=== PATIENT | male | born 1975 | race Caucasian/White ===

== ENCOUNTER 2021-05-13 18:02 | Emergency (ER) | payer SELFPAY ==
[~2021-05-13] VITALS: Ht 167.6 cm; Wt 108.0 kg
[2021-05-13 18:31] VITALS: BP 172/112
--- NOTE | 2021-05-13 19:48 | NUR ---
Dr. Brown examining patient.
--- NOTE | 2021-05-13 20:06 | NUR ---
NOVEL SWAB COLLECTED AND TAKEN TO LAB.
[2021-05-13 20:45] VITALS: BP 133/99
--- NOTE | 2021-05-13 20:45 | NUR ---
Patient discharged with v/s stable. Written and verbal after care instructions given and explained. Patient verbalized understanding. Ambulatory with steady gait. All questions addressed prior to discharge. Advised to follow up with PMD.
== END 2021-05-13 20:45 | disposition home or self-care (01) ==
LOC: MED 18:02
DX: B34.9 Viral infection, unspecified (principal); Z20.822 Contact with and (suspected) exposure to COVID-19; I10 Essential (primary) hypertension; Z98.890 Other specified postprocedural states
CPT/HCPCS: 71045; 87426; 99284; U0003

== ENCOUNTER 2021-09-23 23:34 | Emergency (ER) | payer SELFPAY ==
[~2021-09-23] VITALS: Ht 167.6 cm; Wt 110.2 kg
[2021-09-23 23:41] VITALS: BP 130/102
--- NOTE | 2021-09-23 23:55 | NUR ---
Pt ambulated to bed 11.
[2021-09-24] MEDS ORDERED: ASPIRIN 325 MG TAB PO ONE
[2021-09-24] MEDS ORDERED: NITROGLYCERIN 0.4 MG TAB SL ONE
--- NOTE | 2021-09-24 00:07 | NUR ---
REPORTS SOME CHEST PAIN SINCE TUESDAY WITH NEW ONSET LEFT ARM SENSATION ABNORMALITIES AND NUMBNESS. COAX4 WITH NOOTHER COMPLAINTS. PMHX HTN NKA
[2021-09-24 00:09] LABS: BASOPHILS # (AUTO) 0.1 K/uL (0.00-0.22); BASOPHILS % (AUTO) 0.6 % (0.0-2.0); EOSINOPHILS # (AUTO) 0.3 K/uL (0-0.4); EOSINOPHILS % (AUTO) 3.9 % (0.0-4.0); HEMATOCRIT 47.1 % (36-52); HEMOGLOBIN 16.5 g/dL (12.0-18.0); LYMPHOCYTES # (AUTO) 2.3 K/uL (2.0-11.5); LYMPHOCYTES % (AUTO) 28.4 % (20.5-51.1); MEAN CORPUSCULAR HEMOGLOBIN 31 pg (27-31); MEAN CORPUSCULAR HGB CONC 35 g/dL (33-37); MEAN CORPUSCULAR VOLUME 87.7 fL (80-94); MONOCYTES # (AUTO) 0.7 K/uL (0.8-1.0); NEUTROPHILS # (AUTO) 4.8 K/uL (1.8-7.7); NEUTROPHILS % (AUTO) 58.1 % (42.2-75.2); PLATELET COUNT (AUTO) 349 K/uL (140-450); RED BLOOD CELL COUNT(AUTO) 5.37 MIL/uL (4.20-6.10); RED CELL DISTRIBUTION WIDTH 13.3 % (11.6-13.7); WHITE BLOOD COUNT (AUTO) 8.2 K/uL (4.8-10.8)
[2021-09-24 00:26] LABS: ALBUMIN 3.5 g/dL (3.4-5.0); ANION GAP 15.3 (8-16); CARBON DIOXIDE 20.7 mmol/L (21-32); CREATININE 0.9 mg/dL (0.6-1.3); TOTAL BILIRUBIN 0.7 mg/dL (0.0-1.0)
[2021-09-24] MEDS ORDERED: KETOROLAC 30 MG/ML VIAL IM ONE (01:30)
[2021-09-24] MEDS ORDERED: NAPR-54 PO (03:09)
--- NOTE | 2021-09-24 03:25 | NUR ---
CLEARED FOR DISCHARGE AT THIS TIME. NO OTHER COMPLAINTS OR CONCERNS AT THIS TIME FOLLOWING DISHCARGE TEACHING. ADVISED TO FOLLOW UP WITH PCP AND RETURN IF CONDITON WORSENS.
[2021-09-24 03:26] VITALS: BP 130/102
== END 2021-09-24 03:32 | disposition home or self-care (01) ==
LOC: MED 23:34
DX: R07.89 Other chest pain (principal); I10 Essential (primary) hypertension; F17.210 Nicotine dependence, cigarettes, uncomplicated; F15.90 Other stimulant use, unspecified, uncomplicated; Z71.6 Tobacco abuse counseling; Z90.49 Acquired absence of other specified parts of digestive tract; Z79.899 Other long term (current) drug therapy
CPT/HCPCS: 36415; 71045; 80053; 83690; 84484; 85025; 93005; 96372; 99285; J1885; Q0092

== ENCOUNTER 2022-04-18 07:36 | Inpatient (IN) | payer OTHER ==
[~2022-04-18] VITALS: Ht 167.6 cm; Wt 104.3 kg
[~2022-04-18 07:36] MED LIST: NAPR-54 PO
[2022-04-18 07:40] VITALS: BP 131/67
--- NOTE | 2022-04-18 07:40 | NUR ---
TO BED AMBULATORY
--- NOTE | 2022-04-18 07:42 | NUR ---
SEEN AND EXAMINED BY DR. RYAN
[2022-04-18] MEDS ORDERED: FUROSEMIDE 40 MG/4 ML VIAL IVP ONE (07:45)
[2022-04-18] MEDS ORDERED: NITROGLYCERIN 2% 1 GM PKT TP ONE (07:45)
[2022-04-18] MEDS ORDERED: ASPIRIN 325 MG TAB PO ONE (07:45)
--- NOTE | 2022-04-18 07:57 | NUR ---
LAB AT BEDSIDE
[2022-04-18 08:12] LABS: BASOPHILS # (AUTO) 0.1 K/uL (0.00-0.22); BASOPHILS % (AUTO) 1.5 % (0.0-2.0); EOSINOPHILS # (AUTO) 0.2 K/uL (0-0.4); EOSINOPHILS % (AUTO) 2.1 % (0.0-4.0); HEMATOCRIT 47.2 % (36-52); HEMOGLOBIN 15.6 g/dL (12.0-18.0); LYMPHOCYTES # (AUTO) 2.7 K/uL (2.0-11.5); LYMPHOCYTES % (AUTO) 27.2 % (20.5-51.1); MEAN CORPUSCULAR HEMOGLOBIN 29 pg (27-31); MEAN CORPUSCULAR HGB CONC 33 g/dL (33-37); MEAN CORPUSCULAR VOLUME 88.8 fL (80-94); MONOCYTES # (AUTO) 0.8 K/uL (0.8-1.0); MONOCYTES % (AUTO) 7.9 % (1.7-9.3); NEUTROPHILS # (AUTO) 6.2 K/uL (1.8-7.7); NEUTROPHILS % (AUTO) 61.3 % (42.2-75.2); PLATELET COUNT (AUTO) 383 K/uL (140-450); RED BLOOD CELL COUNT(AUTO) 5.32 MIL/uL (4.20-6.10); RED CELL DISTRIBUTION WIDTH 17.3 % (11.6-13.7)
--- NOTE | 2022-04-18 08:18 | NUR ---
46YR OLD MALE BIB SELF C/O CP AND SOB SINCE TUESDAY. PAIN LEVEL 05/26 . MIDSTERNAL PRESSURE TO LEFT ARM /SHOULDER. DENIES N/V. IS SOB. NO DISTRESS NOTED. RESP EVEN AND UNLABORED. 02SAT 99% RA. PT IS A&OX4. STATES LOWER EXTREMITIES WERE SWOLLEN. HASNT TAKEN HIS RX MEDS FOR A WEEK. HX OF HTN AND CHF. PT ON BEDSIDE MONITOR . SIDE RAILS UP X2 HOB ELEVATED. 20G IV CATH PLACED IN L AC NKDA CHF HTN
--- NOTE | 2022-04-18 08:18 | NUR ---
20G IV CATH PLACED L AC . LABS OBTAINED AND SENT WITH HOSPICE PLAN ADMINISTRATOR. CXR DONE AT BEDSIDE
[2022-04-18 08:47] LABS: ALBUMIN 3.3 g/dL (3.4-5.0); ASPARTATE AMINOTRANSFERASE 16 U/L (15-37); CARBON DIOXIDE 22.2 mmol/L (21-32); CHLORIDE 106 mmol/L (98-107); CREATININE 1.2 mg/dL (0.6-1.3); GFR ARICAN-AMERICAN 84 mL/min (>90); GLUCOSE 148 mg/dL (74-106); POTASSIUM 4.2 mmol/L (3.5-5.1); SODIUM SERUM 137 mmol/L (136-145); TOTAL BILIRUBIN 0.6 mg/dL (0.0-1.0); UREA NITROGEN, BLOOD 21 mg/dL (7-18)
[2022-04-18] MEDS ORDERED: MORPHINE SULFATE 4 MG/ML SYR IVP ONE (10:30)
[2022-04-18] MEDS ORDERED: ENOXAPARIN 100 MG/ML SYR SUBQ ONE (10:30)
--- NOTE | 2022-04-18 10:39 | NUR ---
CLARIFY WITH DR RYAN COAG LABS TO BE DONE BEFORE LEONOX INJECTED, PER DR RYAN NONE ARE NEEDED
--- NOTE | 2022-04-18 10:47 | NUR ---
PATIENT TOLERATED MEDS . PENDING ADMISSION ORDERS.
[2022-04-18] MEDS ORDERED: LISI5TAB18 PO (12:19)
[2022-04-18] MEDS ORDERED: FURO-570 PO (12:20)
[2022-04-18] MEDS ORDERED: ATOR10TA51 PO (12:20)
[2022-04-18] MEDS ORDERED: CARV3.12 PO (12:21)
[2022-04-18] MEDS ORDERED: SPIR50TA PO (12:22)
--- NOTE | 2022-04-18 12:43 | NUR ---
PENDING ADMISSION [facility] . [facility] REC AND BELONGINGS COMPLETE
[2022-04-18] MEDS ORDERED: ACETAMINOPHEN 325 MG TAB PO PRN (13:15)
[2022-04-18] MEDS ORDERED: guaiFENesin DM 200/20 MG-10 ML 10 ML UDC PO PRN (13:15)
[2022-04-18] MEDS ORDERED: ZOLPIDEM 5 MG TAB PO PRN (13:15)
[2022-04-18] MEDS ORDERED: ONDANSETRON 4 MG/2 ML VIAL IM/IVP PRN (13:15)
[2022-04-18] MEDS ORDERED: DOCUSATE SODIUM 100 MG GELCAP PO PRN (13:15)
[2022-04-18] MEDS ORDERED: POTASSIUM CHLORIDE 10 MEQ TABER PO PRN (13:15)
[2022-04-18] MEDS ORDERED: HYDROcodone/APAP 7.5/325 MG 1 TAB PO PRN (13:15)
[2022-04-18] MEDS ORDERED: FUROSEMIDE 100 MG/10 ML VIAL IV SCH (14:00)
--- NOTE | 2022-04-18 14:40 | NUR ---
TELE HOLD. FOOD PROVIDED TO PATIENT. RESP EVEN AND UNLABORED. BEDSIDE MONITOR ON PT
[2022-04-18 15:04] LABS: CHOL/HDL RATIO 3.8 (1-4.5); FREE T4 (FREE THYROXINE) 0.95 ng/dL (0.76-1.46); MAGNESIUM 1.9 mg/dL (1.8-2.4); PHOSPHORUS 4.5 mg/dL (2.5-4.9); PROTHROMBIN TIME 12.2 secs (10.8-13.4); THYROID STIMULATING HORMONE 3.44 uIU/mL (0.34-3.74)
--- NOTE | 2022-04-18 15:51 | NUR ---
ULTRASOUND AT BEDSIDE
[2022-04-18] MEDS ORDERED: ATORVASTATIN 20 MG TAB PO SCH (17:00)
--- NOTE | 2022-04-18 19:28 | NUR ---
PT SLEEPING. X2 BED RAILS UP.
--- NOTE | 2022-04-18 20:32 | NUR ---
Patient will be admitted to care of [facility]. Admited to TELE. Will go to room 120 B. Belongings list completed. Report to NICK.
--- NOTE | 2022-04-18 20:38 | NUR ---
RECEIVED PT TO THE UNIT FROM ER ESCORTED BY 2 ER [facility]UR[facility]. AWAKE, ALERT AND VERBALLY RESPONSIVE. PT TRANSFERRED INDEPENDENTLY FROM RBIXBY TO BED. SKIN INTACT, DRY AND WARM. ON ASSESSMENT, RESPIRATION EVEN AND BILATERAL LUNGS SOUNDS CLEAR. PT WITH MILD SOB WHEN SPEAK OF A LONG SENTENCE. PT VERBALIZED OF FEELING SLIGHTLY BLOATED, FEELS BETTER AFTER LASIX. IV SALINE LOCK PRESENT ON LEFT AC OF 20G, INTACT AND PATENT, NO REDNESS OR SIGN/SYMPTOM OF INFECTION. ABDOMEN WITH MINIMAL DISTENTION. PT STATED WITH MINIMAL DISCOMFORT ON MIDDLE CHEST WHICH TOLERABLE. WILL CONTINUE TO MONITOR.
[2022-04-18] MEDS: FUROSEMIDE 40 MG/4 ML VIAL IVP SCH (21:45)
[2022-04-18] MEDS: METOPROLOL 25 MG TAB PO SCH (21:45)
--- NOTE | 2022-04-18 21:45 | NUR ---
LASIX ADMINISTERED ORDERED.
--- NOTE | 2022-04-18 22:15 | NUR ---
PT AMBULATES TO RESTROOM INDEPENDENTLY. PT VERBALIZED OF FEELING RELIEVE FROM DISCOMFORT/CHEST PAIN ON MID CHEST.
--- NOTE | 2022-04-19 00:15 | NUR ---
PT ASLEEP. NO FACIAL GRIMACING.
[2022-04-19 04:00] VITALS: BP 112/85
[2022-04-19 05:46] LABS: BASOPHILS # (AUTO) 0.1 K/uL (0.00-0.22); BASOPHILS % (AUTO) 1.3 % (0.0-2.0); EOSINOPHILS # (AUTO) 0.3 K/uL (0-0.4); EOSINOPHILS % (AUTO) 2.9 % (0.0-4.0); HEMATOCRIT 45.1 % (36-52); HEMOGLOBIN 15.1 g/dL (12.0-18.0); LYMPHOCYTES # (AUTO) 2.5 K/uL (2.0-11.5); LYMPHOCYTES % (AUTO) 26.4 % (20.5-51.1); MEAN CORPUSCULAR HEMOGLOBIN 30 pg (27-31); MEAN CORPUSCULAR HGB CONC 33 g/dL (33-37); MEAN CORPUSCULAR VOLUME 88.5 fL (80-94); MONOCYTES # (AUTO) 0.8 K/uL (0.8-1.0); MONOCYTES % (AUTO) 8.1 % (1.7-9.3); NEUTROPHILS # (AUTO) 5.8 K/uL (1.8-7.7); NEUTROPHILS % (AUTO) 61.3 % (42.2-75.2); PLATELET COUNT (AUTO) 401 K/uL (140-450); RED CELL DISTRIBUTION WIDTH 17.1 % (11.6-13.7); WHITE BLOOD COUNT (AUTO) 9.5 K/uL (4.8-10.8)
[2022-04-19 06:47] LABS: ANION GAP 13.8 (8-16); CARBON DIOXIDE 23.7 mmol/L (21-32); CREATININE 1.3 mg/dL (0.6-1.3); POTASSIUM 3.5 mmol/L (3.5-5.1)
[2022-04-19 08:00] VITALS: BP 108/79
[2022-04-19 08:07] LABS: T4 (THYROXINE) 6.5 ug/dL (4.5-12.0)
--- NOTE | 2022-04-19 08:25 | NUR ---
RECEIVE ENDORSEMENT FROM PM SHIFT NURSE THAT PATIENT IS REST IN BED, PIV LAC 20G SALINE LOCK. WILL CONTINUE TO MONITOR
[2022-04-19] MEDS: FUROSEMIDE 40 MG/4 ML VIAL IVP SCH ×2 (08:57→20:59)
[2022-04-19] MEDS: PANTOPRAZOLE 40 MG TABEC PO SCH (08:58)
[2022-04-19] MEDS: METOPROLOL 25 MG TAB PO SCH (08:58)
[2022-04-19] MEDS: lisinopriL 20 MG TAB PO SCH (08:59)
[2022-04-19 10:11] LABS: APPEARANCE,URINE CLEAR (CLEAR); BILIRUBIN,URINE NEGATIVE (NEGATIVE); BLOOD, URINE NEGATIVE (NEGATIVE); COLOR,URINE YELLOW (YELLOW); LEUKOCYTE ESTERASE ,URINE NEGATIVE (NEGATIVE); NITRITE, URINE NEGATIVE (NEGATIVE); UGLUCOSE NEGATIVE (NEGATIVE)
[2022-04-19 10:23] LABS: BARBITURATE, URINE NEGATIVE ng/ml (NEG <=200); BENZODIAZEPINE, URINE NEGATIVE ng/mL (NEG <=200); CANNABINOID, URINE NEGATIVE ng/mL (NEG <=50); COCAINE, URINE NEGATIVE ng/mL (NEG <=300); OPIATE, URINE POSITIVE ng/mL (NEG <=2000); PHENCYCLIDINE SCREEN,URINE NEGATIVE ng/mL (NEG <=25)
[2022-04-19 12:00] VITALS: BP 100/73
[2022-04-19] MEDS ORDERED: NAPROXEN 500 MG TAB PO PRN (12:10)
[2022-04-19 16:00] VITALS: BP 99/65
--- NOTE | 2022-04-19 16:48 | NUR ---
SENDING REQUEST FOR MEDICAL RECORD FOR PATIENT WHO HAS SPENT ABOUT 3 DAYS STAY IN [facility] ([phone], PATIENT THOUGH WAS [facility]) AT DECEMBER. PLEASE F/U
--- NOTE | 2022-04-19 17:02 | NUR ---
04/19/2022 RD INITIAL ASSESSMENT COMPLETED. PLEASE REFER TO NUTRITION ASSESSMENT UNDER CARE ACTIVITY FOR ESTIMATED NUTRITIONAL NEEDS. 1.CONTINUE WITH CARDIAC DIET. 2.MONITOR NUTRITION-RELATED LABS 3.RD TO FOLLOW-UP IN 3-5 DAYS PATIENT IS MODERATE RISK. KENDRA HARRIS, RD
--- NOTE | 2022-04-19 19:41 | NUR ---
ENDORSE PT TO PM SHIFT NURSE THAT PATIENT IS REST IN BED, PIV LAC 20G SALINE LOCK. FAX REQUEST FOR MEDICAL RECORD TO [facility]
--- NOTE | 2022-04-19 19:45 | NUR ---
GET THE REPORT FROM MORNING NURSE MADI, PATIENT IS LYING ON BED, PATIENT IS ALERT ORIENTED X4, CALL LIGHT IS WITHIN THE REACH, WILL CONTINUE TO MONITOR PATIENT.
[2022-04-19 20:00] VITALS: BP 100/71
--- NOTE | 2022-04-19 20:33 | NUR ---
PATIENT IS LYING ON BED, NO ANY COMPLAIN OF PAIN OR SHORTNESS OF BREATH AT THIS TIME, VITAL SIGN IS WITHIN THE NORMAL RANGE, CALL LIGHT IS WITHIN THE REACH, WILL CONTINUE TO MONITOR PATIENT.
[2022-04-19] MEDS: carvediloL 3.125 MG TAB PO SCH (20:59)
--- NOTE | 2022-04-19 21:01 | NUR ---
PATIENT BLOOD PRESSURE IS 100/71, MASSAGE DOCTOR SUYAPA ABOUT FOR TO HOLD LASIX 40 MG AND COREG3.375MG, DOCTOR REPLY WITH HOLD MEDICATION FOR NOW , MEDICATION HELD PER DOCTOR ORDER, CALL LIGHT IS WITHIN THE REACH,WILL CONTINUE TO MONITOR PATIENT.
--- NOTE | 2022-04-19 21:05 | NUR ---
AT 2100 SCHEDULE MEDICATION HOLD LASIX 40 MG AND COREG 3.125MG PER DOCTOR ORDER, CALL LIGHT IS WITHIN THE REACH, WILL CONTINUE TO MONITOR PATIENT.
[2022-04-20] VITALS: BP 97/65
--- NOTE | 2022-04-20 01:07 | NUR ---
PATIENT IS LYING ON BED, NO ANY COMPLAIN OF PAIN OR SHORTNESS OF BREATH AT THIS TIME, VITAL SIGN IS WITHIN THE NORMAL RANGE, CALL LIGHT IS WITHIN THE REACH,WILL CONTINUE TO MONITOR PATIENT.
[2022-04-20 04:00] VITALS: BP 98/71
--- NOTE | 2022-04-20 04:06 | NUR ---
PATIENT IS LYING ON BED, NO ANY COMPLAIN OF PAIN OR SHORTNESS OF BREATH AT THIS TIME, REMOVE THE INFILTRATED IV AND REINSERT NEW IV AT LEFT WRIST 20 GAUGE, VITAL SIGN IS WITHIN THE NORMAL RANGE, CALL LIGHT IS WITHIN THE REACH,WILL CONTINUE TO MONITOR PATIENT.
[2022-04-20 05:54] LABS: BASOPHILS # (AUTO) 0.1 K/uL (0.00-0.22); BASOPHILS % (AUTO) 0.8 % (0.0-2.0); EOSINOPHILS # (AUTO) 0.1 K/uL (0-0.4); EOSINOPHILS % (AUTO) 1.3 % (0.0-4.0); HEMATOCRIT 45.3 % (36-52); HEMOGLOBIN 14.9 g/dL (12.0-18.0); LYMPHOCYTES # (AUTO) 2.5 K/uL (2.0-11.5); LYMPHOCYTES % (AUTO) 27.9 % (20.5-51.1); MEAN CORPUSCULAR HEMOGLOBIN 29 pg (27-31); MEAN CORPUSCULAR HGB CONC 33 g/dL (33-37); MEAN CORPUSCULAR VOLUME 88.5 fL (80-94); MONOCYTES # (AUTO) 0.8 K/uL (0.8-1.0); MONOCYTES % (AUTO) 8.5 % (1.7-9.3); NEUTROPHILS # (AUTO) 5.6 K/uL (1.8-7.7); NEUTROPHILS % (AUTO) 61.5 % (42.2-75.2); PLATELET COUNT (AUTO) 399 K/uL (140-450); RED BLOOD CELL COUNT(AUTO) 5.12 MIL/uL (4.20-6.10); RED CELL DISTRIBUTION WIDTH 17.1 % (11.6-13.7); WHITE BLOOD COUNT (AUTO) 9.1 K/uL (4.8-10.8)
[2022-04-20 06:01] LABS: ANION GAP 14.4 (8-16); CARBON DIOXIDE 23.2 mmol/L (21-32); CREATININE 1.4 mg/dL (0.6-1.3); POTASSIUM 3.6 mmol/L (3.5-5.1)
--- NOTE | 2022-04-20 06:24 | NUR ---
PATIENT IS LYING ON BED, WILL CONTINUE TO MONITOR PATIENT
--- NOTE | 2022-04-20 07:34 | NUR ---
GIVE REPORT TO MORNING NURSE MORE FOR CONTINUOUS OF CARE, PATIENT IS STABLE.
[2022-04-20 08:00] VITALS: BP 101/74
--- NOTE | 2022-04-20 08:00 | NUR ---
RECEIVED REPORT FROM INFORMATION ENGINEER FOR CONTINUITY OF CARE. PATIENT ALERT AWAKE ORIENTED X4, NOT IN ANY DISTRESS NOTED. DENIES PAIN AT THIS TIME. ON SCHEDULER CONVEYOR SHOWS SR. WITH HEPLOCK LEFT WRIST G 20DRY INTACT. BED IN LOW POSITION. CALL LIGHT WITHIN REACH. PATIENT WANTS TO GO HOME. WILL CONTINUE TO MONITOR.
[2022-04-20] MEDS ORDERED: lisinopriL 5 MG TAB PO SCH ×2 (09:00→21:00)
[2022-04-20] MEDS ORDERED: SPIRONOLACTONE 50 MG TAB PO SCH (09:00)
[2022-04-20] MEDS ORDERED: ATORVASTATIN 20 MG TAB PO SCH (09:00)
[2022-04-20] MEDS: PANTOPRAZOLE 40 MG TABEC PO SCH (09:40)
[2022-04-20] MEDS: carvediloL 3.125 MG TAB PO SCH (09:41)
[2022-04-20] MEDS: lisinopriL 20 MG TAB PO SCH (09:41)
[2022-04-20] MEDS: FUROSEMIDE 40 MG/4 ML VIAL IVP SCH (09:41)
--- NOTE | 2022-04-20 11:19 | NUR ---
PATIENT ASLEEP SNORING, DENIES PAIN .WILL CONTINUE TO MONITOR.
[2022-04-20 12:00] VITALS: BP 103/75
[2022-04-20 16:00] VITALS: BP 102/67
[2022-04-20] MEDS ORDERED: ATOR20TA40 PO (17:39)
[2022-04-20] MEDS ORDERED: LISI5TAB24 PO (17:39)
[2022-04-20] MEDS ORDERED: FURO-570 PO (17:39)
[2022-04-20] MEDS ORDERED: SPIR50TA PO (17:39)
[2022-04-20] MEDS ORDERED: CARV3.12 PO (17:39)
--- NOTE | 2022-04-20 18:27 | NUR ---
PATIENT DC HOME AMBULATORY WITH DC INSTRUCTION GIVEN AND VERBALIZED UNDERSTANDING, IN STABLE CONDITION.
[2022-04-21] MEDS ORDERED: FUROSEMIDE 40 MG/4 ML VIAL IVP SCH (09:00)
[2022-04-21] MEDS ORDERED: FUROSEMIDE 40 MG TAB PO SCH (09:00)
== END 2022-04-20 18:25 | disposition home or self-care (01) | DRG 291 ==
LOC: MED 07:36 → MTU 11:32 → MED 18:17
PROVIDERS: ADMIT Family Medicine; ATTEND Family Medicine
DX: I11.0 Hypertensive heart disease with heart failure (principal); I50.23 Acute on chronic systolic (congestive) heart failure; E44.1 Mild protein-calorie malnutrition; I42.0 Dilated cardiomyopathy; E78.5 Hyperlipidemia, unspecified; E78.1 Pure hyperglyceridemia; Z20.822 Contact with and (suspected) exposure to COVID-19; Z79.899 Other long term (current) drug therapy; Z90.49 Acquired absence of other specified parts of digestive tract; Z79.84 Long term (current) use of oral hypoglycemic drugs; Z68.37 Body mass index [BMI] 37.0-37.9, adult; Z91.14 Patient's other noncompliance with medication regimen
CPT/HCPCS: 36415; 71045; 80048; 80053; 80305; 81003; 82150; 83036; 83690; 83735; 83880; 84100; 84436; 84439; 84443; 84479; 84484; 85025; 85610; 85730; 87081; 93005; 96372; 96374; 96375; 99291; J1650; J1940; J2270

== ENCOUNTER 2022-05-27 08:24 | Emergency (ER) | payer OTHER ==
[~2022-05-27] VITALS: Ht 167.6 cm; Wt 104.3 kg
[~2022-05-27 08:24] MED LIST changes: +ATOR20TA40 PO; +CARV3.12 PO; +FURO-570 PO; +LISI5TAB24 PO; -NAPR-54 PO; +SPIR50TA PO
[2022-05-27 08:30] VITALS: BP 144/97
--- NOTE | 2022-05-27 08:36 | NUR ---
PT W/C ASSISTED TO BED 11.
--- NOTE | 2022-05-27 09:18 | NUR ---
TAILING MACHINE OPERATOR BEDSIDE
--- NOTE | 2022-05-27 09:22 | NUR ---
46/M PRESENTS TO ED WITH C/O BILATERAL FOOT PAIN X3 WEEKS, PATIENT DENIES RECENT INJURY OR TRAUMA. STATES HE HAS BEEN MOVING HEAVY EQUIPMENT IN THE LAST FEW WEEKS D/T A NEW JOB, PATIENT REPORTS EPISODES OF SWELLING TO BOTH FEET. PATIENT W/C ASSISTED UPON ARRIVAL TO ED.
[2022-05-27] MEDS ORDERED: KETOROLAC 30 MG/ML VIAL IM ONE (09:55)
[2022-05-27] MEDS ORDERED: KETOROLAC 30 MG/ML VIAL ONE (10:01)
[2022-05-27 11:03] VITALS: BP 125/77
--- NOTE | 2022-05-27 11:04 | NUR ---
Patient discharged with v/s stable. Written and verbal after care instructions ABOUT FOOT PAIN given and explained. Patient verbalized understanding. Wheel Chair Assisted with to LOBBY TO A/W RIDE. All questions addressed prior to discharge. Advised to follow up with PMD.
== END 2022-05-27 11:04 | disposition home or self-care (01) ==
LOC: MED 08:24
DX: M79.672 Pain in left foot (principal); M79.671 Pain in right foot; E78.5 Hyperlipidemia, unspecified
CPT/HCPCS: 73610; 73630; 96372; 99284; J1885

== ENCOUNTER 2022-07-06 06:20 | Emergency (ER) | payer OTHER ==
[~2022-07-06] VITALS: Ht 177.8 cm; Wt 108.4 kg
[2022-07-06] MEDS ORDERED: ASPIRIN 81 MG TAB.CHEW ONE (08:52)
[2022-07-06] MEDS ORDERED: FUROSEMIDE 20 MG/2 ML VIAL IVP ONE (08:52)
[2022-07-06 10:16] LABS: BASOPHILS # (AUTO) 0.1 K/uL (0.00-0.22); EOSINOPHILS # (AUTO) 0.2 K/uL (0-0.4); EOSINOPHILS % (AUTO) 2.3 % (0.0-4.0); HEMATOCRIT 48.2 % (36-52); HEMOGLOBIN 15.8 g/dL (12.0-18.0); LYMPHOCYTES # (AUTO) 1.6 K/uL (2.0-11.5); LYMPHOCYTES % (AUTO) 15.9 % (20.5-51.1); MEAN CORPUSCULAR HEMOGLOBIN 29 pg (27-31); MEAN CORPUSCULAR HGB CONC 33 g/dL (33-37); MEAN CORPUSCULAR VOLUME 89.5 fL (80-94); MONOCYTES # (AUTO) 0.8 K/uL (0.8-1.0); MONOCYTES % (AUTO) 7.7 % (1.7-9.3); NEUTROPHILS # (AUTO) 7.2 K/uL (1.8-7.7); NEUTROPHILS % (AUTO) 73.1 % (42.2-75.2); PLATELET COUNT (AUTO) 405 K/uL (140-450); RED BLOOD CELL COUNT(AUTO) 5.38 MIL/uL (4.20-6.10); RED CELL DISTRIBUTION WIDTH 15.3 % (11.6-13.7); WHITE BLOOD COUNT (AUTO) 9.9 K/uL (4.8-10.8)
[2022-07-06 11:18] VITALS: BP 110/87
[2022-07-06 11:29] LABS: ALBUMIN 3.5 g/dL (3.4-5.0); ANION GAP 16.7 (8-16); CARBON DIOXIDE 23.3 mmol/L (21-32); CREATININE 0.9 mg/dL (0.6-1.3); TOTAL BILIRUBIN 0.8 mg/dL (0.0-1.0)
--- NOTE | 2022-07-06 12:20 | NUR ---
NICOLETTE delivered to lab.
[2022-07-06] MEDS ORDERED: CARV3.12 PO (13:41)
[2022-07-06] MEDS ORDERED: SPIR50TA PO (13:41)
[2022-07-06] MEDS ORDERED: FURO-570 PO (13:41)
[2022-07-06] MEDS ORDERED: LISI5TAB18 PO (13:41)
[2022-07-06 13:51] VITALS: BP 108/75
== END 2022-07-06 13:52 | disposition home or self-care (01) ==
LOC: MED 06:20
DX: I50.9 Heart failure, unspecified (principal); Z20.822 Contact with and (suspected) exposure to COVID-19; I10 Essential (primary) hypertension; Z79.899 Other long term (current) drug therapy
CPT/HCPCS: 36415; 71045; 80053; 83880; 84484; 85025; 87426; 93005; 99285; J1940; Q0092

== ENCOUNTER 2023-04-03 12:51 | Inpatient (IN) | payer MEDICAID, OTHER ==
[~2023-04-03] VITALS: Ht 167.6 cm; Wt 108.9 kg
[~2023-04-03 12:51] MED LIST changes: +LISI5TAB18 PO
--- NOTE | 2023-04-03 13:15 | NUR ---
PATIENT PRESENTS TO ED WITH SOB AND CHEST PAIN. PT STATES HE HAS BEEN IN PAIN FOR OVER A WEEK BUT THE LAST THREE DAYS HAVE BEEN UNBEARABLE. DENIES N/V/D; SKIN IS PINK/WARM/DRY; AAOX4 PT CAN AMBULATE BUT ONLY IN SHORT DISTANCES. PT FEELS LIKE HES HAVING SOB WHEN WALKING. LUNGS CLEAR BL; HR EVEN AND REGULAR; PT DENIES ANY FEVER, OR COUGH AT THIS TIME; PATIENT STATES PAIN OF 7/10 AT THIS TIME; VSS; PATIENT POSITIONED FOR COMFORT; HOB ELEVATED; BEDRAILS UP X2; BED DOWN. ER MD MADE AWARE OF PT STATUS.
[2023-04-03] MEDS ORDERED: FUROSEMIDE 40 MG/4 ML VIAL IVP ONE (13:25)
--- NOTE | 2023-04-03 13:30 | NUR ---
PT HAS LABS DRAWN. PT ON MONITOR. PT ON O2 3 LITERS FOR COMFORT MEASURES. PT HAS SEEN PROVIDER. PT HAS BEEN SWABBED FOR NICOLETTE.
[2023-04-03 13:47] LABS: BASOPHILS # (AUTO) 0.1 K/uL (0.00-0.22); BASOPHILS % (AUTO) 1.5 % (0.0-2.0); EOSINOPHILS # (AUTO) 0.1 K/uL (0-0.4); EOSINOPHILS % (AUTO) 1.6 % (0.0-4.0); HEMATOCRIT 45.1 % (36-52); HEMOGLOBIN 15.2 g/dL (12.0-18.0); LYMPHOCYTES # (AUTO) 1.9 K/uL (2.0-11.5); MEAN CORPUSCULAR HEMOGLOBIN 31 pg (27-31); MEAN CORPUSCULAR HGB CONC 34 g/dL (33-37); MEAN CORPUSCULAR VOLUME 92.9 fL (80-94); MONOCYTES # (AUTO) 0.4 K/uL (0.8-1.0); MONOCYTES % (AUTO) 4.8 % (1.7-9.3); NEUTROPHILS # (AUTO) 6.8 K/uL (1.8-7.7); NEUTROPHILS % (AUTO) 72.1 % (42.2-75.2); PLATELET COUNT (AUTO) 400 K/uL (140-450); RED BLOOD CELL COUNT(AUTO) 4.86 MIL/uL (4.20-6.10); RED CELL DISTRIBUTION WIDTH 15.5 % (11.6-13.7); WHITE BLOOD COUNT (AUTO) 9.3 K/uL (4.8-10.8)
[2023-04-03 14:08] LABS: ALBUMIN 3.5 g/dL (3.4-5.0); ANION GAP 15.1 (8-16); CARBON DIOXIDE 23.8 mmol/L (21-32); POTASSIUM 3.9 mmol/L (3.5-5.1); TOTAL BILIRUBIN 0.9 mg/dL (0.0-1.0)
[2023-04-03] MEDS ORDERED: NITROGLYCERIN 0.4 MG TAB SL ONE ×2 (14:17→14:20)
--- NOTE | 2023-04-03 14:25 | NUR ---
PT STATES HES CONTINUE TO HAVE CHEST PAIN AND PRESSURE IN HIS HEAD. MD MADE AWARE OF PTS STATUS. MD ORDERD LASIX AND NITRO ORDER ADMINISTERED BY ALISA GREEN.
--- NOTE | 2023-04-03 15:57 | NUR ---
Pt is asleep in room, resting comfortably.
[2023-04-03] MEDS ORDERED: ALBUTEROL 0.083% 2.5 MG/3 ML NEBU INH PRN (16:05)
[2023-04-03] MEDS ORDERED: POTASSIUM CHLORIDE 10 MEQ TABER PO PRN (16:10)
[2023-04-03] MEDS ORDERED: DOCUSATE SODIUM 100 MG GELCAP PO PRN (16:10)
[2023-04-03] MEDS ORDERED: ZOLPIDEM 10 MG TAB PO PRN (16:10)
[2023-04-03] MEDS ORDERED: ONDANSETRON 4 MG/2 ML VIAL IVP PRN (16:10)
[2023-04-03] MEDS ORDERED: MAG SULF 2000 MG/WATER PREMIX 50 ML IV PRN (16:10)
[2023-04-03] MEDS ORDERED: MORPHINE SULFATE 2 MG/ML SYR IVP PRN (16:10)
[2023-04-03] MEDS ORDERED: LORazepam 2 MG/ML VIAL IVP PRN (16:10)
[2023-04-03] MEDS ORDERED: ACETAMINOPHEN 325 MG TAB PO PRN (16:10)
--- NOTE | 2023-04-03 19:41 | NUR ---
Released care to terell sarah at [phone]
--- NOTE | 2023-04-03 19:58 | NUR ---
Patient will be admitted to care of MD Lynch. Admited to Tele. Will go to room 122B. Belongings list completed. Report to ALISA Yates.
[2023-04-03 20:55] VITALS: BP 112/82
--- NOTE | 2023-04-03 21:00 | NUR ---
RECEIVED REPORT FROM ER NURSE ARRON FOR CONTINUITY OF CARE. PATIENT IS A&O X4. PATIENT IS ON ROOM AIR, BREATHING IS NORMAL WITH SYMMETRICAL RISE AND FALL OF CHEST. IV IS 20G LAC, NO FLUIDS RUNNING AT THIS TIME. PATIENT AMBULATED ON TO BED INDEPENDENTLY. PATIENT LYING SEMI-FOWLERS IN BED. BED IS IN LOWEST POSITION, WHEELS LOCKED, CALL LIGHT IN PLACE. WILL CONTINUE TO OBSERVE PATIENT.
[2023-04-03] MEDS: lisinopriL 5 MG TAB PO SCH (21:54)
[2023-04-03] MEDS: carvediloL 3.125 MG TAB PO SCH (21:55)
[2023-04-04] VITALS: BP 113/80
--- NOTE | 2023-04-04 01:00 | NUR ---
PATIENT WAS COOPERATIVE DURING ADMISSION; AND THEN QUICKLY WENT TO SLEEP. PATIENT HAS BEEN SLEEPING COMFORTABLY THROUGHOUT THE NIGHT. BREATHING IS NORMAL WITH SYMMETRICAL RISE AND FALL OF CHEST. WILL CONTINUE TO OBSERVE PATIENT.
[2023-04-04 04:00] VITALS: BP 99/61
--- NOTE | 2023-04-04 05:00 | NUR ---
PATIENT HAS SLEPT THROUGHOUT THE NIGHT. BREATHING IS NORMAL WITH SYMMETRICAL RISE AND FALL OF CHEST. WILL CONTINUE TO OBSERVE PATIENT.
[2023-04-04 05:53] LABS: BASOPHILS # (AUTO) 0.1 K/uL (0.00-0.22); BASOPHILS % (AUTO) 0.7 % (0.0-2.0); EOSINOPHILS # (AUTO) 0.3 K/uL (0-0.4); EOSINOPHILS % (AUTO) 3.5 % (0.0-4.0); HEMATOCRIT 45.5 % (36-52); HEMOGLOBIN 15.3 g/dL (12.0-18.0); LYMPHOCYTES # (AUTO) 1.6 K/uL (2.0-11.5); LYMPHOCYTES % (AUTO) 16.6 % (20.5-51.1); MEAN CORPUSCULAR HEMOGLOBIN 31 pg (27-31); MEAN CORPUSCULAR HGB CONC 34 g/dL (33-37); MEAN CORPUSCULAR VOLUME 92.4 fL (80-94); MONOCYTES # (AUTO) 0.8 K/uL (0.8-1.0); MONOCYTES % (AUTO) 7.9 % (1.7-9.3); NEUTROPHILS % (AUTO) 71.3 % (42.2-75.2); PLATELET COUNT (AUTO) 385 K/uL (140-450); RED BLOOD CELL COUNT(AUTO) 4.93 MIL/uL (4.20-6.10); RED CELL DISTRIBUTION WIDTH 15.2 % (11.6-13.7); WHITE BLOOD COUNT (AUTO) 9.9 K/uL (4.8-10.8)
[2023-04-04 05:54] LABS: ANION GAP 13.3 (8-16); CARBON DIOXIDE 25.8 mmol/L (21-32); CREATININE 0.9 mg/dL (0.6-1.3); POTASSIUM 4.1 mmol/L (3.5-5.1)
--- NOTE | 2023-04-04 07:29 | NUR ---
ENDORSED TO DAY SHIFT NURSE JORDON FOR CONTINUITY OF CARE. PATIENT IS STABLE.
--- NOTE | 2023-04-04 07:30 | NUR ---
RECEIVED REPORT FROM PLASTIC PARTS FABRICATOR NURSE FOR CONTINUITY OF CARE. PT IS ASLEEP, AWAKEN BY NAME, CALL LIGHT WITHIN REACH.
[2023-04-04 08:00] VITALS: BP 124/82
[2023-04-04] MEDS ORDERED: FUROSEMIDE 40 MG/4 ML VIAL IVP SCH (09:00)
--- NOTE | 2023-04-04 09:19 | NUR ---
PATIENT HAS BEEN SCREENED AND CATEGORIZED MODERATE NUTRITION RISK. PATIENT WILL BE SEEN WITHIN 3-5 DAYS OF ADMISSION. 04/06/23-04/08/[address]
[2023-04-04] MEDS: carvediloL 3.125 MG TAB PO SCH ×2 (09:27→20:35)
[2023-04-04] MEDS: lisinopriL 5 MG TAB PO SCH ×2 (09:27→20:36)
[2023-04-04] MEDS: SPIRONOLACTONE 50 MG TAB PO SCH (09:27)
[2023-04-04] MEDS: FUROSEMIDE 40 MG/4 ML VIAL IVP SCH ×2 (09:29→18:12)
[2023-04-04 12:00] VITALS: BP 113/78
--- NOTE | 2023-04-04 14:27 | NUR ---
DC [age] YRS OLD MALE PATIENT WAS ADMITTED FROM HOME WITH A DX OF CHF. PATIENT HAS A HX OF HTN, CHF, CXR SHOWED CARDIOMEGALY WITH MILD PULMONARY VASCULAR CONGESTION. RAPID COVID TEST NEGATIVE. ADMINISTERED IV LASIX AND CONTINUED HOME MEDS. CONSULTED WITH HELPER TEACHER. DC PLAN TO GO HOME WHEN STABLE. CM TO FOLLOW. Addendum: 04/05/23 at 1505 by BART BRYAN CM CALLED [facility] LOCATED AT [address] [facility] SPOKE WITH NURYS WHO WAS ABLE TO HELP ME SET UP APPOINTMENT FOR 04/07/2023 FOR 1000. WENT TO BEDSIDE BUT PATIENT WAS ASLEEP SO GAVE TO NURSE JOAN TO GIVE TO PATIENT.
[2023-04-04 16:00] VITALS: BP 107/69
--- NOTE | 2023-04-04 19:20 | NUR ---
ENDORSED PT TO ACCOUNTANT SYSTEMS NURSE FOR CONTINUITY OF CARE. PT IS STABLE, NO SIGNS OF DISTRESS. CALL LIGHT WITHIN REACH.
--- NOTE | 2023-04-04 19:30 | NUR ---
RECEIVED REPORT FROM DAY SHIFT NURSE JORDON FOR CONTINUITY OF CARE. PATIENT IS A&O X4. PATIENT IS ON ROOM AIR, BREATHING IS NORMAL WITH SYMMETRICAL RISE AND FALL OF CHEST. IV IS 20G LAC, NO FLUIDS RUNNING AT THIS TIME. PATIENT LYING SEMI-FOWLERS IN BED, SLEEPING. BED IS IN LOWEST POSITION, WHEELS LOCKED, CALL LIGHT IN PLACE. WILL CONTINUE TO OBSERVE PATIENT.
[2023-04-04 20:00] VITALS: BP 107/72
[2023-04-04] MEDS ORDERED: ATORVASTATIN 20 MG TAB PO SCH (21:00)
--- NOTE | 2023-04-04 22:00 | NUR ---
2100 MEDICATION WAS ADMINISTERED TO PATIENT SUCCESSFULLY WITHOUT ANY ISSUES WITH SWALLOWING. PATIENT WENT BACK TO SLEEP SHORTLY AFTER MEDICATION ADMINISTRATION. BREATHING IS NORMAL WITH SYMMETRICAL RISE AND FALL OF CHEST. WILL CONTINUE TO OBSERVE PATIENT.
[2023-04-05] VITALS: BP 98/68
--- NOTE | 2023-04-05 01:15 | NUR ---
NOTICED ON PATIENT'S LABS THAT MAGNESIUM WAS 1.7. CHECKED PATIENT'S EMAR AND SAW PATIENT HAD PRN MAGNESIUM. ADMINISTERED PRN MAGNESIUM IVPB TO PATIENT.
[2023-04-05 04:00] VITALS: BP 110/69
--- NOTE | 2023-04-05 05:00 | NUR ---
PATIENT SLEEPING. BREATHING IS NORMAL WITH SYMMETRICAL RISE AND FALL OF CHEST. WILL CONTINUE TO OBSERVE PATIENT.
[2023-04-05 05:31] LABS: ANION GAP 12.5 (8-16); CARBON DIOXIDE 26.6 mmol/L (21-32); POTASSIUM 4.1 mmol/L (3.5-5.1)
[2023-04-05 05:34] LABS: BASOPHILS # (AUTO) 0.1 K/uL (0.00-0.22); EOSINOPHILS # (AUTO) 0.3 K/uL (0-0.4); EOSINOPHILS % (AUTO) 2.5 % (0.0-4.0); HEMOGLOBIN 16.3 g/dL (12.0-18.0); LYMPHOCYTES % (AUTO) 15.4 % (20.5-51.1); MEAN CORPUSCULAR HEMOGLOBIN 31 pg (27-31); MEAN CORPUSCULAR HGB CONC 34 g/dL (33-37); MEAN CORPUSCULAR VOLUME 91.5 fL (80-94); MONOCYTES % (AUTO) 8.3 % (1.7-9.3); NEUTROPHILS # (AUTO) 9.2 K/uL (1.8-7.7); NEUTROPHILS % (AUTO) 72.8 % (42.2-75.2); PLATELET COUNT (AUTO) 407 K/uL (140-450); RED BLOOD CELL COUNT(AUTO) 5.24 MIL/uL (4.20-6.10); RED CELL DISTRIBUTION WIDTH 15.2 % (11.6-13.7); WHITE BLOOD COUNT (AUTO) 12.7 K/uL (4.8-10.8)
--- NOTE | 2023-04-05 07:35 | NUR ---
ENDORSED TO DAY SHIFT NURSE JOAN FOR CONTINUITY OF CARE. PATIENT IS STABLE.
--- NOTE | 2023-04-05 07:38 | NUR ---
RECEIVED PATIENT FROM PM NURSE FOR CONTINUATION OF CARE. PATIENT SEEN ON BED ASLEEP, NORMAL RISE AND FALL OF CHEST. PATIENT MONITORING AND CARE CONTINUED.
[2023-04-05 08:00] VITALS: BP 113/69
[2023-04-05] MEDS ORDERED: CARV3.12 PO (08:06)
[2023-04-05] MEDS ORDERED: FURO-570 PO (08:06)
[2023-04-05] MEDS ORDERED: ATOR20TA40 PO (08:06)
[2023-04-05] MEDS ORDERED: LISI5TAB24 PO (08:06)
[2023-04-05] MEDS ORDERED: SPIR50TA PO (08:06)
[2023-04-05] MEDS: FUROSEMIDE 40 MG/4 ML VIAL IVP SCH (09:00)
[2023-04-05] MEDS: SPIRONOLACTONE 50 MG TAB PO SCH (10:08)
[2023-04-05] MEDS: lisinopriL 5 MG TAB PO SCH (10:09)
[2023-04-05] MEDS: carvediloL 3.125 MG TAB PO SCH (10:09)
[2023-04-05] MEDS ORDERED: PRED20TA5 PO (11:14)
[2023-04-05] MEDS ORDERED: predniSONE 20 MG TAB PO SCH (11:15)
[2023-04-05 12:00] VITALS: BP 110/67
[2023-04-05 14:13] VITALS: BP 110/67
== END 2023-04-05 14:50 | disposition home or self-care (01) | DRG 194 ==
LOC: MED 12:51 → MTU 16:08
PROVIDERS: ADMIT Family Medicine; ATTEND Family Medicine
DX: I11.0 Hypertensive heart disease with heart failure (principal); R65.11 Systemic inflammatory response syndrome (SIRS) of non-infectious origin with acute organ dysfunction; I42.0 Dilated cardiomyopathy; I50.23 Acute on chronic systolic (congestive) heart failure; Z20.822 Contact with and (suspected) exposure to COVID-19; Z79.899 Other long term (current) drug therapy; Z91.148 Patient's other noncompliance with medication regimen for other reason; R07.89 Other chest pain
CPT/HCPCS: 36415; 71045; 73610; 80048; 80053; 83735; 83880; 84484; 85025; 87081; 93005; 96374; 99285; J1940; J2270; J3475; J7512; J7613

== ENCOUNTER 2023-07-17 03:01 | Inpatient (IN) | payer MEDICAID ==
[~2023-07-17] VITALS: Ht 167.6 cm; Wt 103.9 kg
[2023-07-17] VITALS (15 sets, daily range): BP systolic 96–151; BP diastolic 58–98; PULSE 83–119; RESP 18–40; TEMP 97.7–99.3; O2SAT 93–99
[~2023-07-17 03:01] MED LIST changes: -LISI5TAB18 PO; +PRED20TA5 PO; -SPIR50TA PO
[2023-07-17] MEDS ORDERED: NITROGLYCERIN 2% 1 GM PKT TP ONE (03:25)
[2023-07-17] MEDS ORDERED: AZITHROMYCIN 500 MG in DEXTROSE 5% 250 ML IV ONE (03:25)
[2023-07-17] MEDS ORDERED: ALBUTEROL SULFATE/IPRATROPIU 3 ML SOL IH ONE (03:35)
[2023-07-17] MEDS ORDERED: FUROSEMIDE 40 MG/4 ML VIAL IVP ONE (03:40)
[2023-07-17] MEDS ORDERED: cefTRIAXone 1,000 MG VIAL ONE (03:41)
[2023-07-17] MEDS ORDERED: AZITHROMYCIN 500 MG INJ VIAL IV ONE (03:42)
[2023-07-17 04:07] LABS: BLOOD GAS PCO2 27.6 mmHg (35-45); BLOOD GAS PH 7.474 (7.35-7.45); BLOOD GAS PO2 63.1 mmHg (75-100)
[2023-07-17 04:08] LABS: BLOOD GAS BASE EXCESS -2.2 mmol/L (-2.0-2.0); BLOOD GAS HCO3 19.8 mmol/L (22-26); BLOOD GAS O2 SAT% 93.8 % (92.0-98.5)
[2023-07-17 04:13] LABS: ALBUMIN 3.4 g/dL (3.4-5.0); ANION GAP 14.5 (8-16); CALCIUM 8.7 mg/dL (8.5-10.1); CARBON DIOXIDE 22.7 mmol/L (21-32); CREATININE 1.1 mg/dL (0.6-1.3); POTASSIUM 4.2 mmol/L (3.5-5.1); TOTAL BILIRUBIN 1.1 mg/dL (0.0-1.0); TOTAL PROTEIN, SERUM 7.1 g/dL (6.4-8.2)
[2023-07-17 04:15] LABS: BASOPHILS # (AUTO) 0.1 K/uL (0.00-0.22); BASOPHILS % (AUTO) 0.3 % (0.0-2.0); EOSINOPHILS % (AUTO) 0.3 % (0.0-4.0); HEMATOCRIT 46.1 % (36-52); HEMOGLOBIN 15.3 g/dL (12.0-18.0); LYMPHOCYTES # (AUTO) 0.8 K/uL (2.0-11.5); LYMPHOCYTES % (AUTO) 4.9 % (20.5-51.1); MEAN CORPUSCULAR HEMOGLOBIN 31 pg (27-31); MEAN CORPUSCULAR HGB CONC 33 g/dL (33-37); MEAN CORPUSCULAR VOLUME 92.3 fL (80-94); NEUTROPHILS # (AUTO) 14.2 K/uL (1.8-7.7); PLATELET COUNT (AUTO) 294 K/uL (140-450); RED CELL DISTRIBUTION WIDTH 15.2 % (11.6-13.7)
[2023-07-17 04:17] LABS: LACTIC ACID 1.8 mmol/L (0.4-2.0)
[2023-07-17 04:21] LABS: NEUTROPHILS % (AUTO) 88.5 % (42.2-75.2)
[2023-07-17 04:38] LABS: APPEARANCE,URINE CLEAR (CLEAR); BILIRUBIN,URINE NEGATIVE (NEGATIVE); BLOOD, URINE NEGATIVE (NEGATIVE); COLOR,URINE YELLOW (YELLOW); LEUKOCYTE ESTERASE ,URINE NEGATIVE (NEGATIVE); NITRITE, URINE NEGATIVE (NEGATIVE); PROTEIN,URINE NEGATIVE (NEGATIVE); UGLUCOSE NEGATIVE (NEGATIVE)
[2023-07-17] MEDS ORDERED: DOCUSATE SODIUM 100 MG GELCAP PO PRN (08:00)
[2023-07-17] MEDS ORDERED: ZOLPIDEM 10 MG TAB PO PRN (08:00)
[2023-07-17] MEDS ORDERED: POTASSIUM CHLORIDE 10 MEQ TABER PO PRN (08:00)
[2023-07-17] MEDS ORDERED: ONDANSETRON 4 MG/2 ML VIAL IVP PRN (08:00)
[2023-07-17] MEDS ORDERED: LORazepam 2 MG/ML VIAL IVP PRN (08:00)
[2023-07-17] MEDS ORDERED: MAG SULF 2000 MG/WATER PREMIX 50 ML IV PRN (08:00)
[2023-07-17] MEDS ORDERED: MORPHINE SULFATE 2 MG/ML SYR IVP PRN (08:00)
[2023-07-17] MEDS: ATORVASTATIN 20 MG TAB PO SCH (08:30)
[2023-07-17] MEDS: carvediloL 3.125 MG TAB PO SCH ×2 (08:30→21:00)
[2023-07-17] MEDS: lisinopriL 5 MG TAB PO SCH ×2 (08:31→21:00)
[2023-07-17] MEDS: ACETAMINOPHEN 325 MG TAB PO PRN (08:34)
[2023-07-17] MEDS: FUROSEMIDE 40 MG/4 ML VIAL IVP SCH ×2 (08:34→17:33)
[2023-07-17] MEDS: ALBUTEROL 0.083% 2.5 MG/3 ML NEBU INH SCH ×2 (13:59→18:57)
[2023-07-18] VITALS (11 sets, daily range): BP systolic 90–119; BP diastolic 55–81; PULSE 56–89; RESP 18–20; TEMP 97–98.4; O2SAT 92–99
[2023-07-18] MEDS: ALBUTEROL 0.083% 2.5 MG/3 ML NEBU INH SCH ×4 (00:08→18:48)
[2023-07-18 06:23] LABS: BASOPHILS # (AUTO) 0.1 K/uL (0.00-0.22); BASOPHILS % (AUTO) 0.5 % (0.0-2.0); EOSINOPHILS # (AUTO) 0.1 K/uL (0-0.4); HEMATOCRIT 43.8 % (36-52); HEMOGLOBIN 14.7 g/dL (12.0-18.0); LYMPHOCYTES # (AUTO) 1.4 K/uL (2.0-11.5); LYMPHOCYTES % (AUTO) 11.1 % (20.5-51.1); MEAN CORPUSCULAR HEMOGLOBIN 31 pg (27-31); MEAN CORPUSCULAR HGB CONC 34 g/dL (33-37); MEAN CORPUSCULAR VOLUME 91.6 fL (80-94); MONOCYTES % (AUTO) 7.9 % (1.7-9.3); NEUTROPHILS # (AUTO) 9.8 K/uL (1.8-7.7); NEUTROPHILS % (AUTO) 79.5 % (42.2-75.2); PLATELET COUNT (AUTO) 267 K/uL (140-450); RED BLOOD CELL COUNT(AUTO) 4.79 MIL/uL (4.20-6.10); RED CELL DISTRIBUTION WIDTH 14.6 % (11.6-13.7); WHITE BLOOD COUNT (AUTO) 12.4 K/uL (4.8-10.8)
[2023-07-18 06:38] LABS: ANION GAP 11.4 (8-16); CALCIUM 8.9 mg/dL (8.5-10.1); CARBON DIOXIDE 27.2 mmol/L (21-32); CREATININE 0.9 mg/dL (0.6-1.3); POTASSIUM 3.6 mmol/L (3.5-5.1)
[2023-07-18] MEDS: carvediloL 3.125 MG TAB PO SCH ×2 (08:13→21:00)
[2023-07-18] MEDS: lisinopriL 5 MG TAB PO SCH ×2 (08:30→21:00)
[2023-07-18] MEDS: ATORVASTATIN 20 MG TAB PO SCH (08:30)
[2023-07-18] MEDS: FUROSEMIDE 40 MG/4 ML VIAL IVP SCH ×2 (08:30→08:32)
[2023-07-18] MEDS: AZITHROMYCIN 500 MG in DEXTROSE 5% 250 ML IV SCH (08:32)
[2023-07-18 19:24] LABS: AMPHETAMINE, URINE NEGATIVE ng/ml (NEG <=1000); BARBITURATE, URINE NEGATIVE ng/ml (NEG <=200); BENZODIAZEPINE, URINE NEGATIVE ng/mL (NEG <=200); CANNABINOID, URINE NEGATIVE ng/mL (NEG <=50); COCAINE, URINE NEGATIVE ng/mL (NEG <=300); OPIATE, URINE NEGATIVE ng/mL (NEG <=2000); PHENCYCLIDINE SCREEN,URINE NEGATIVE ng/mL (NEG <=25)
[2023-07-19] VITALS (13 sets, daily range): BP systolic 90–110; BP diastolic 56–85; PULSE 48–89; RESP 16–20; TEMP 97–98.1; O2SAT 94–100
[2023-07-19] MEDS: ALBUTEROL 0.083% 2.5 MG/3 ML NEBU INH SCH ×4 (00:12→18:50)
[2023-07-19] MEDS: ACETAMINOPHEN 325 MG TAB PO PRN (00:18)
[2023-07-19 06:32] LABS: BASOPHILS # (AUTO) 0.1 K/uL (0.00-0.22); BASOPHILS % (AUTO) 0.9 % (0.0-2.0); EOSINOPHILS # (AUTO) 0.4 K/uL (0-0.4); EOSINOPHILS % (AUTO) 4.3 % (0.0-4.0); HEMATOCRIT 44.8 % (36-52); LYMPHOCYTES % (AUTO) 20.5 % (20.5-51.1); MEAN CORPUSCULAR HEMOGLOBIN 31 pg (27-31); MEAN CORPUSCULAR HGB CONC 34 g/dL (33-37); MEAN CORPUSCULAR VOLUME 90.8 fL (80-94); MONOCYTES # (AUTO) 0.8 K/uL (0.8-1.0); MONOCYTES % (AUTO) 8.4 % (1.7-9.3); NEUTROPHILS # (AUTO) 6.3 K/uL (1.8-7.7); NEUTROPHILS % (AUTO) 65.9 % (42.2-75.2); PLATELET COUNT (AUTO) 290 K/uL (140-450); RED BLOOD CELL COUNT(AUTO) 4.93 MIL/uL (4.20-6.10); RED CELL DISTRIBUTION WIDTH 14.9 % (11.6-13.7); WHITE BLOOD COUNT (AUTO) 9.6 K/uL (4.8-10.8)
[2023-07-19 06:45] LABS: ANION GAP 11.5 (8-16); CARBON DIOXIDE 27.2 mmol/L (21-32); CREATININE 0.8 mg/dL (0.6-1.3); POTASSIUM 3.7 mmol/L (3.5-5.1)
[2023-07-19] MEDS: FUROSEMIDE 40 MG/4 ML VIAL IVP SCH ×2 (08:39→17:06)
[2023-07-19] MEDS: ATORVASTATIN 20 MG TAB PO SCH (08:40)
[2023-07-19] MEDS: carvediloL 3.125 MG TAB PO SCH ×2 (08:40→21:17)
[2023-07-19] MEDS: AZITHROMYCIN 500 MG in DEXTROSE 5% 250 ML IV SCH (08:40)
[2023-07-19] MEDS: lisinopriL 5 MG TAB PO SCH ×2 (08:41→21:17)
[2023-07-20] MEDS: ALBUTEROL 0.083% 2.5 MG/3 ML NEBU INH SCH ×2 (01:15→07:35)
[2023-07-20 01:16] VITALS: PULSE 80; RESP 16; O2SAT 93
[2023-07-20 04:00] VITALS: BP 104/68; PULSE 84; RESP 16; TEMP 97.4; O2SAT 98
[2023-07-20 06:59] LABS: BASOPHILS % (AUTO) 0.4 % (0.0-2.0); EOSINOPHILS # (AUTO) 0.4 K/uL (0-0.4); EOSINOPHILS % (AUTO) 4.5 % (0.0-4.0); HEMATOCRIT 44.9 % (36-52); HEMOGLOBIN 15.4 g/dL (12.0-18.0); LYMPHOCYTES # (AUTO) 1.6 K/uL (2.0-11.5); LYMPHOCYTES % (AUTO) 16.9 % (20.5-51.1); MEAN CORPUSCULAR HEMOGLOBIN 31 pg (27-31); MEAN CORPUSCULAR HGB CONC 34 g/dL (33-37); MEAN CORPUSCULAR VOLUME 90.3 fL (80-94); MONOCYTES # (AUTO) 0.8 K/uL (0.8-1.0); MONOCYTES % (AUTO) 8.2 % (1.7-9.3); NEUTROPHILS # (AUTO) 6.8 K/uL (1.8-7.7); PLATELET COUNT (AUTO) 316 K/uL (140-450); RED BLOOD CELL COUNT(AUTO) 4.98 MIL/uL (4.20-6.10); RED CELL DISTRIBUTION WIDTH 14.2 % (11.6-13.7); WHITE BLOOD COUNT (AUTO) 9.7 K/uL (4.8-10.8)
[2023-07-20 07:06] LABS: ANION GAP 10.7 (8-16); CALCIUM 9.4 mg/dL (8.5-10.1); CARBON DIOXIDE 29.8 mmol/L (21-32); CREATININE 0.9 mg/dL (0.6-1.3); POTASSIUM 3.5 mmol/L (3.5-5.1)
[2023-07-20 07:35] VITALS: PULSE 75; RESP 16; O2SAT 95
[2023-07-20] MEDS: AZITHROMYCIN 500 MG in DEXTROSE 5% 250 ML IV SCH (08:23)
[2023-07-20] MEDS: lisinopriL 5 MG TAB PO SCH (09:00)
[2023-07-20] MEDS: carvediloL 3.125 MG TAB PO SCH (09:00)
[2023-07-20] MEDS: FUROSEMIDE 40 MG/4 ML VIAL IVP SCH (09:00)
[2023-07-20] MEDS ORDERED: FURO-570 PO (09:18)
[2023-07-20] MEDS ORDERED: AMOX-999 PO (09:19)
[2023-07-20] MEDS: ATORVASTATIN 20 MG TAB PO SCH (09:23)
[2023-07-20 10:16] VITALS: BP 90/46; PULSE 75; RESP 19; TEMP 97.1
== END 2023-07-20 12:15 | disposition home or self-care (01) | DRG 720 ==
LOC: MED 03:01 → MTU 04:06
PROVIDERS: ADMIT Family Medicine; ATTEND Family Medicine
PROC: 5A09357 Assistance with Respiratory Ventilation, Less than 24 Consecutive Hours, Continuous Positive Airway Pressure (ICD-10-PCS; principal; 2023-07-17)
PROC: 5A09357 Assistance with Respiratory Ventilation, Less than 24 Consecutive Hours, Continuous Positive Airway Pressure (ICD-10-PCS; 2023-07-18)
PROC: 5A09357 Assistance with Respiratory Ventilation, Less than 24 Consecutive Hours, Continuous Positive Airway Pressure (ICD-10-PCS; 2023-07-19)
DX: A41.9 Sepsis, unspecified organism (principal); N17.0 Acute kidney failure with tubular necrosis; J96.01 Acute respiratory failure with hypoxia; I50.23 Acute on chronic systolic (congestive) heart failure; I42.0 Dilated cardiomyopathy; E87.1 Hypo-osmolality and hyponatremia; J18.9 Pneumonia, unspecified organism; Z20.822 Contact with and (suspected) exposure to COVID-19; E80.6 Other disorders of bilirubin metabolism; Z96.659 Presence of unspecified artificial knee joint; Z91.148 Patient's other noncompliance with medication regimen for other reason; Z87.891 Personal history of nicotine dependence; Z79.899 Other long term (current) drug therapy; Z90.49 Acquired absence of other specified parts of digestive tract
CPT/HCPCS: 36415; 36600; 71045; 80048; 80053; 80305; 81003; 82803; 83605; 83735; 83880; 84484; 85025; 87040; 87081; 87205; 87635-QW; 89220; 93005; 94617; 94640; 94660; 96365; 96367; 96375; 99291; J0456; J0696; J1940; J7060; J7613; Q0092